=== PATIENT | female | born 1945 | race Two or more races ===

== ENCOUNTER 2022-12-18 18:26 | Inpatient (IN) | payer OTHER, MEDICAID ==
[~2022-12-18] VITALS: Ht 142.2 cm; Wt 81.4 kg
[2022-12-18] MEDS ORDERED: INSU100I27 SC (21:54)
[2022-12-18] MEDS ORDERED: INSU50IN6 (21:54)
[2022-12-18] MEDS ORDERED: INSUINJ37 SC (21:54)
[2022-12-18] MEDS ORDERED: LEVO150T10 PO (21:54)
[2022-12-18] MEDS ORDERED: POTA-180 PO (21:54)
[2022-12-18] MEDS ORDERED: LISI-716 PO (21:54)
[2022-12-18] MEDS ORDERED: FENO67CA6 PO (21:54)
[2022-12-18] MEDS ORDERED: AMLO-496 PO (21:54)
[2022-12-18] MEDS ORDERED: ALPR0.5T8 PO (21:54)
[2022-12-18] MEDS ORDERED: GABA300C10 PO (21:54)
[2022-12-18] MEDS ORDERED: HYDR-3682 PO (21:54)
[2022-12-18 22:00] VITALS: BP 134/48
[2022-12-18] MEDS ORDERED: ONDANSETRON HCL 4 MG/2 ML VIAL IV PRN (22:15)
[2022-12-18] MEDS ORDERED: DEXTROSE (50%) 50ML SYRG IV PRN (22:15)
[2022-12-18] MEDS: MORPHINE SULFATE INJ 2 MG/ml SYRG IV PRN (23:54)
[2022-12-19] MEDS: CLINDAMYCIN 600MG IV 50 ML IV SCH ×2 (00:48→07:00)
[2022-12-19 05:00] VITALS: BP 127/57
[2022-12-19] MEDS: MORPHINE SULFATE INJ 2 MG/ml SYRG IV PRN ×3 (05:30→23:37)
[2022-12-19] MEDS ORDERED: ACCU-CHEK COMFORT CURVE STRIP VI SCH ×2 (07:00→12:00)
[2022-12-19] MEDS ORDERED: InsuLIN REG 1unit/0.01ml Soln (100units/ml) SC SCH ×3 (07:00→22:00)
[2022-12-19 09:00] VITALS: BP 104/35
[2022-12-19] MEDS: levoFLOXacin 500MG 100 ML IV SCH (10:23)
[2022-12-19] MEDS ORDERED: DEXTROSE (50%) 50ML SYRG IV PRN (11:45)
[2022-12-19] MEDS ORDERED: ALPRAZolam 0.5 MG TAB PO PRN ×2 (11:45)
[2022-12-19] MEDS: InsuLIN REG 1unit/0.01ml Soln (100units/ml) SC SCH ×3 (11:58→23:49)
[2022-12-19] MEDS: ACCU-CHEK COMFORT CURVE STRIP VI SCH ×3 (11:58→23:38)
[2022-12-19 12:46] VITALS: BP 146/54
[2022-12-19] MEDS ORDERED: GABAPENTIN 300 MG CAP PO SCH (14:00)
[2022-12-19] MEDS: GABAPENTIN 300 MG CAP PO SCH ×2 (14:12→22:47)
[2022-12-19] MEDS ORDERED: VANCOMYCIN PER PHARMACY 0 MG IV SCH (14:30)
[2022-12-19] MEDS ORDERED: VANCOMYCIN 1GM/250ML 250 ML IV ONE (14:45)
[2022-12-19 15:22] LABS: Calcium 8.6 mg/dL (8.5-10.1); Potassium 4.7 mmol/L (3.5-5.1)
[2022-12-19 15:25] LABS: BUN/Creatinine Ratio 19.6 (10.0-20.0)
[2022-12-19 16:54] LABS: Basophils # (auto) 0 10 ^3/uL (0-0.2); Basophils % (auto) 0.7 % (0.0-2.0); Eosinophils # (auto) 0 10 ^3/uL (0-0.8); Hemoglobin 10.3 g/dL (12.2-16.2); Lymphocytes # (auto) 1.4 10 ^3/uL (0.4-5.4); Lymphocytes % (auto) 26.2 % (10.0-50.0); Mean Corpuscular Hemoglobin 29.1 pg (28.0-32.0); Mean Corpuscular Hgb Conc. 32.2 g/dL (32.0-36.0); Mean Corpuscular Volume 90.4 fL (80.0-100.0); Monocytes # (auto) 0.6 10 ^3/uL (0-1.3); Monocytes % (auto) 10.3 % (0.0-12.0); Neutrophils # (auto) 3.5 10 ^3/uL (1.6-8.6); Neutrophils % (auto) 62.8 % (37.0-80.0); Nucleated Red Blood Cells % 0.1 %; Red Blood Cells 3.54 10^6/uL (4.0-5.20); Red Cell Distribution Width 14.9 % (11.8-14.3); White Blood Cell 5.5 10^3/uL (4.4-10.8)
[2022-12-19 17:00] VITALS: BP 125/47
[2022-12-19 17:09] LABS: INR 1.03 (0.9-1.15); Partial Thromboplastin Time 27.7 sec (24.6-33.4)
[2022-12-19 22:00] VITALS: BP 119/46
[2022-12-20 05:00] VITALS: BP 127/53
[2022-12-20] MEDS: GABAPENTIN 300 MG CAP PO SCH ×3 (06:00→23:44)
[2022-12-20] MEDS: InsuLIN REG 1unit/0.01ml Soln (100units/ml) SC SCH ×3 (06:00→18:37)
[2022-12-20 06:01] LABS: Basophils # (auto) 0 10 ^3/uL (0-0.2); Basophils % (auto) 0.6 % (0.0-2.0); Eosinophils # (auto) 0 10 ^3/uL (0-0.8); Eosinophils % (auto) 0.1 % (0.0-7.0); Hematocrit 29.8 % (36.0-46.0); Hemoglobin 10.1 g/dL (12.2-16.2); Lymphocytes # (auto) 2.7 10 ^3/uL (0.4-5.4); Lymphocytes % (auto) 41.2 % (10.0-50.0); Mean Corpuscular Hemoglobin 30.1 pg (28.0-32.0); Mean Corpuscular Hgb Conc. 33.9 g/dL (32.0-36.0); Mean Corpuscular Volume 88.9 fL (80.0-100.0); Monocytes # (auto) 0.9 10 ^3/uL (0-1.3); Monocytes % (auto) 13.6 % (0.0-12.0); Neutrophils # (auto) 2.9 10 ^3/uL (1.6-8.6); Neutrophils % (auto) 44.5 % (37.0-80.0); Nucleated Red Blood Cells % 0.1 %; Red Blood Cells 3.35 10^6/uL (4.0-5.20); Red Cell Distribution Width 15.3 % (11.8-14.3); White Blood Cell 6.5 10^3/uL (4.4-10.8)
[2022-12-20 06:13] LABS: Albumin 2.2 g/dL (3.4-5.0); Calcium 8.3 mg/dL (8.5-10.1); Potassium 3.6 mmol/L (3.5-5.1)
[2022-12-20 06:18] LABS: BUN/Creatinine Ratio 20.6 (10.0-20.0); Bilirubin, Total 0.3 mg/dL (0.2-1.0); Total Protein 5.9 g/dL (6.4-8.2)
[2022-12-20] MEDS: ACCU-CHEK COMFORT CURVE STRIP VI SCH ×3 (06:18→18:00)
[2022-12-20 06:37] LABS: INR 1.03 (0.9-1.15); Partial Thromboplastin Time 28.4 sec (24.6-33.4)
[2022-12-20] MEDS ORDERED: cefTRIAXone 1GM/50ML D5W 50 ML IV SCH (09:00)
[2022-12-20 09:17] VITALS: BP 133/66
[2022-12-20] MEDS ORDERED: PATIENTS OWN MEDICATION (Levothyroxine Sodium 1 TAB) PO SCH (10:00)
[2022-12-20] MEDS: FENOFIBRATE 67 MG PO SCH (10:00)
[2022-12-20] MEDS ORDERED: LISINOPRIL 10 MG TAB PO SCH (10:00)
[2022-12-20] MEDS ORDERED: PATIENTS OWN MEDICATION (Amlodipine Besylate 1 TAB) PO SCH (10:00)
[2022-12-20] MEDS: levoFLOXacin 500MG 100 ML IV SCH (10:50)
[2022-12-20] MEDS: LISINOPRIL 10 MG TAB PO SCH (10:50)
[2022-12-20] MEDS: LEVOTHYROXINE SODIUM 50 MCG TAB PO SCH (10:51)
[2022-12-20] MEDS: amLODIPine BESYLATE 5 MG TAB PO SCH (10:52)
[2022-12-20 13:00] VITALS: BP 150/76
[2022-12-20] MEDS: VANCOMYCIN 1GM/250ML 250 ML IV SCH (15:08)
[2022-12-20] MEDS ORDERED: MIDAZOLAM HCL 2MG/2ML 2ml VIAL (1mg/ml) ONE (16:17)
[2022-12-20] MEDS ORDERED: KETAMINE HCL 10 ML ONE (16:17)
[2022-12-20] MEDS ORDERED: GLYCOPYRROLATE 0.2 MG/ML 1ML VIAL ONE (16:17)
[2022-12-20] MEDS ORDERED: ONDANSETRON HCL 4 MG/2 ML VIAL ONE (16:17)
[2022-12-20] MEDS ORDERED: PROPOFOL 10 MG/ML 20 ML IV ONE (16:18)
[2022-12-20] MEDS ORDERED: ACCU-CHEK COMFORT CURVE STRIP VI ONE (17:15)
[2022-12-20] MEDS ORDERED: HYDROcodone-ACET 5/325MG TAB PO ONE (17:15)
[2022-12-20] MEDS ORDERED: HYDROmorphone HCL 2 MG/ML VL/or syr IV PRN (17:15)
[2022-12-20] MEDS ORDERED: HYDROmorphone HCL 2 MG/ML VL/or syr IV ONE (17:24)
[2022-12-20 22:00] VITALS: BP 132/38
[2022-12-21] MEDS: HYDROcodone-ACET 5/325MG TAB PO PRN ×3 (00:01→21:19)
[2022-12-21] MEDS: InsuLIN REG 1unit/0.01ml Soln (100units/ml) SC SCH ×5 (01:09→23:57)
[2022-12-21] MEDS: ACCU-CHEK COMFORT CURVE STRIP VI SCH ×5 (01:09→23:56)
[2022-12-21 05:00] VITALS: BP 106/38
[2022-12-21] MEDS: GABAPENTIN 300 MG CAP PO SCH ×3 (05:37→21:18)
[2022-12-21 08:47] VITALS: BP 104/62
[2022-12-21] MEDS: levoFLOXacin 500MG 100 ML IV SCH (09:38)
[2022-12-21] MEDS: amLODIPine BESYLATE 5 MG TAB PO SCH (09:39)
[2022-12-21] MEDS: LISINOPRIL 10 MG TAB PO SCH (09:39)
[2022-12-21] MEDS: LEVOTHYROXINE SODIUM 50 MCG TAB PO SCH (09:39)
[2022-12-21] MEDS: FENOFIBRATE 67 MG PO SCH (09:40)
[2022-12-21 12:46] VITALS: BP 121/54
[2022-12-21] MEDS: VANCOMYCIN 1GM/250ML 250 ML IV SCH (14:50)
[2022-12-21] MEDS ORDERED: CIPR500T4 PO (15:34)
[2022-12-21 17:18] VITALS: BP 109/42
[2022-12-21 22:00] VITALS: BP 117/59
[2022-12-22 04:56] VITALS: BP 123/49
[2022-12-22] MEDS: ACCU-CHEK COMFORT CURVE STRIP VI SCH ×4 (05:57→23:30)
[2022-12-22] MEDS: InsuLIN REG 1unit/0.01ml Soln (100units/ml) SC SCH ×4 (06:02→23:36)
[2022-12-22] MEDS: GABAPENTIN 300 MG CAP PO SCH ×3 (06:02→23:15)
[2022-12-22] MEDS: HYDROcodone-ACET 5/325MG TAB PO PRN ×3 (06:02→23:30)
[2022-12-22 09:00] VITALS: BP 113/52
[2022-12-22] MEDS: LEVOTHYROXINE SODIUM 50 MCG TAB PO SCH (09:45)
[2022-12-22] MEDS: LISINOPRIL 10 MG TAB PO SCH (09:46)
[2022-12-22] MEDS: amLODIPine BESYLATE 5 MG TAB PO SCH (09:48)
[2022-12-22] MEDS: levoFLOXacin 500MG 100 ML IV SCH (09:49)
[2022-12-22] MEDS: FENOFIBRATE 67 MG PO SCH (10:00)
[2022-12-22 13:00] VITALS: BP 136/66
[2022-12-22 15:16] VITALS: BP 113/52
[2022-12-22 17:00] VITALS: BP 121/49
[2022-12-22 22:00] VITALS: BP 107/41
[2022-12-23 05:00] VITALS: BP 126/60
[2022-12-23] MEDS: GABAPENTIN 300 MG CAP PO SCH (05:31)
[2022-12-23] MEDS: ACCU-CHEK COMFORT CURVE STRIP VI SCH (05:36)
[2022-12-23] MEDS: InsuLIN REG 1unit/0.01ml Soln (100units/ml) SC SCH (05:37)
== END 2022-12-23 08:30 | disposition home health service (06) | DRG 465 ==
LOC: WEST WING 19:19
PROVIDERS: ADMIT Internal Medicine; ATTEND Internal Medicine
PROC: 0JBP0ZZ Excision of Left Lower Leg Subcutaneous Tissue and Fascia, Open Approach (ICD-10-PCS; principal; 2022-12-20 16:22)
DX: T87.81 Dehiscence of amputation stump (principal); T87.44 Infection of amputation stump, left lower extremity; E11.22 Type 2 diabetes mellitus with diabetic chronic kidney disease; E11.59 Type 2 diabetes mellitus with other circulatory complications; E11.65 Type 2 diabetes mellitus with hyperglycemia; E78.5 Hyperlipidemia, unspecified; I12.9 Hypertensive chronic kidney disease with stage 1 through stage 4 chronic kidney disease, or unspecified chronic kidney disease; I25.10 Atherosclerotic heart disease of native coronary artery without angina pectoris; N18.9 Chronic kidney disease, unspecified; Y83.5 Amputation of limb(s) as the cause of abnormal reaction of the patient, or of later complication, without mention of misadventure at the time of the procedure; Z20.822 Contact with and (suspected) exposure to COVID-19; F41.9 Anxiety disorder, unspecified; Z79.4 Long term (current) use of insulin; Z79.899 Other long term (current) drug therapy; Z80.41 Family history of malignant neoplasm of ovary; Z88.0 Allergy status to penicillin; Z89.511 Acquired absence of right leg below knee; Z89.512 Acquired absence of left leg below knee; Y92.89 Other specified places as the place of occurrence of the external cause
CPT/HCPCS: 36415; 80048; 80053; 80061; 82565; 82962; 85025; 85610; 85730; 86850; 86900; 86901; 87077; 87081; 87186; 87205; 87426; 93005; 93306; G0378; J1815; J1956; J2250; J2405; J2704; J3490

== ENCOUNTER 2023-05-13 00:18 | Inpatient (IN) | payer OTHER, MEDICAID ==
[~2023-05-13] VITALS: Ht 160 cm; Wt 68.0 kg
[~2023-05-13 00:18] MED LIST: ALPR0.5T8 PO; AMLO1TAB23 PO; CIPR500T4 PO; FENO67CA16 PO; GABA-1250 PO; HYDR-3682 PO; INSU100I27 SC; INSU50IN6; INSUINJ37 SC; LEVO150T10 PO; LISI10TA34 PO; POTA-180 PO
[2023-05-13 01:34] LABS: Basophils # (auto) 0.1 10 ^3/uL (0-0.2); Basophils % (auto) 0.5 % (0.0-2.0); Eosinophils # (auto) 0.1 10 ^3/uL (0-0.8); Eosinophils % (auto) 0.8 % (0.0-7.0); Hematocrit 35.8 % (36.0-46.0); Hemoglobin 11.7 g/dL (12.2-16.2); Lymphocytes # (auto) 3.3 10 ^3/uL (0.4-5.4); Lymphocytes % (auto) 25.4 % (10.0-50.0); Mean Corpuscular Hemoglobin 30.7 pg (28.0-32.0); Mean Corpuscular Hgb Conc. 32.7 g/dL (32.0-36.0); Mean Corpuscular Volume 93.9 fL (80.0-100.0); Monocytes # (auto) 1.2 10 ^3/uL (0-1.3); Monocytes % (auto) 9.4 % (0.0-12.0); Neutrophils # (auto) 8.2 10 ^3/uL (1.6-8.6); Neutrophils % (auto) 63.9 % (37.0-80.0); Red Blood Cells 3.81 10^6/uL (4.0-5.20); Red Cell Distribution Width 14.5 % (11.8-14.3); White Blood Cell 12.9 10^3/uL (4.4-10.8)
[2023-05-13 01:54] LABS: Albumin 3.4 g/dL (3.4-5.0); BUN/Creatinine Ratio 30.7 (10.0-20.0); Potassium 5.5 mmol/L (3.5-5.1)
[2023-05-13 01:56] LABS: Bilirubin, Total 0.2 mg/dL (0.2-1.0); Total Protein 7.1 g/dL (6.4-8.2)
[2023-05-13 05:52] LABS: Potassium 5.5 mmol/L (3.5-5.1)
[2023-05-13 05:57] LABS: BUN/Creatinine Ratio 32.8 (10.0-20.0); Calcium 8.9 mg/dL (8.5-10.1)
[2023-05-13 08:28] VITALS: PULSE 70; RESP 18; O2SAT 96
[2023-05-13] MEDS ORDERED: SODIUM BICARBONATE 8.4 % INJ 50ML VIAL IV ONE (11:15)
[2023-05-13] MEDS ORDERED: CALCIUM GLUC 1,000mg/50ml-NS 50 ML IV ONE (11:15)
[2023-05-13] MEDS ORDERED: FUROSEMIDE 20 MG/2 ML VIAL IV ONE (11:15)
[2023-05-13 11:36] LABS: Urine Bacteria NONE SEEN /hpf (None Seen); Urine Blood Negative /uL (Negative); Urine Clarity Clear (Clear); Urine Protein, UAD Negative (Negative); Urine Urobilinogen Normal (Negative); Urine WBC 1 /hpf (0 - 5); Urine pH 6.5 (5.0-8.0)
[2023-05-13 11:37] LABS: Urine Color STRAW (Yellow)
[2023-05-13 12:23] VITALS: PULSE 61; RESP 12; O2SAT 98
[2023-05-13] MEDS ORDERED: HYDROcodone-ACET 5/325MG TAB PO PRN (17:30)
[2023-05-13] MEDS ORDERED: MORPHINE SULFATE INJ 2 MG/ml SYRG IV PRN (17:30)
[2023-05-13] MEDS ORDERED: NITROGLYCERIN 0.4 MG SL TAB SL PRN (17:30)
[2023-05-13] MEDS ORDERED: DEXTROSE (50%) 50ML SYRG IV PRN (17:30)
[2023-05-13] MEDS ORDERED: ONDANSETRON HCL 4 MG/2 ML VIAL IV PRN (17:30)
[2023-05-13] MEDS: SODIUM CHLORIDE 0.9% 1,000 ML IV SCH (18:26)
[2023-05-13 19:28] VITALS: PULSE 71; RESP 14; O2SAT 98
[2023-05-13] MEDS: ACCU-CHEK COMFORT CURVE STRIP VI SCH (22:16)
[2023-05-13] MEDS: GABAPENTIN 100 MG CAP PO SCH (22:24)
[2023-05-13] MEDS: SODIUM ZIRCONIUM CYCL 10 GM PAK PO SCH (22:24)
[2023-05-13] MEDS: InsuLIN REG 1unit/0.01ml Soln (100units/ml) SC SCH (22:31)
[2023-05-14] MEDS: GABAPENTIN 100 MG CAP PO SCH ×3 (05:31→22:09)
[2023-05-14 05:37] LABS: Potassium 4.9 mmol/L (3.5-5.1)
[2023-05-14 05:46] LABS: BUN/Creatinine Ratio 28.9 (10.0-20.0); Calcium 9.3 mg/dL (8.5-10.1)
[2023-05-14] MEDS: SODIUM CHLORIDE 0.9% 1,000 ML IV SCH (06:25)
[2023-05-14] MEDS: ACCU-CHEK COMFORT CURVE STRIP VI SCH ×4 (06:45→22:14)
[2023-05-14] MEDS: InsuLIN REG 1unit/0.01ml Soln (100units/ml) SC SCH ×4 (06:49→22:14)
[2023-05-14] MEDS ORDERED: LEVOTHYROXINE SODIUM 50 MCG TAB PO SCH (07:00)
[2023-05-14 07:43] LABS: Basophils # (auto) 0.1 10 ^3/uL (0-0.2); Basophils % (auto) 0.7 % (0.0-2.0); Eosinophils # (auto) 0.2 10 ^3/uL (0-0.8); Eosinophils % (auto) 1.5 % (0.0-7.0); Hematocrit 36.3 % (36.0-46.0); Hemoglobin 11.9 g/dL (12.2-16.2); Lymphocytes # (auto) 4.2 10 ^3/uL (0.4-5.4); Lymphocytes % (auto) 35.6 % (10.0-50.0); Mean Corpuscular Hemoglobin 30.9 pg (28.0-32.0); Mean Corpuscular Hgb Conc. 32.7 g/dL (32.0-36.0); Mean Corpuscular Volume 94.4 fL (80.0-100.0); Monocytes # (auto) 1.2 10 ^3/uL (0-1.3); Monocytes % (auto) 10.1 % (0.0-12.0); Neutrophils # (auto) 6.2 10 ^3/uL (1.6-8.6); Neutrophils % (auto) 52.1 % (37.0-80.0); Nucleated Red Blood Cells % 0.1 %; Red Blood Cells 3.85 10^6/uL (4.0-5.20); Red Cell Distribution Width 14.2 % (11.8-14.3); White Blood Cell 11.8 10^3/uL (4.4-10.8)
[2023-05-14 09:38] VITALS: PULSE 72; RESP 20; O2SAT 97
[2023-05-14] MEDS: SODIUM ZIRCONIUM CYCL 10 GM PAK PO SCH (09:44)
[2023-05-14 15:08] VITALS: TEMP 98.2
[2023-05-14 21:55] VITALS: BP 112/68; PULSE 68; RESP 17; O2SAT 98
== END 2023-05-14 22:17 | disposition home or self-care (01) | DRG 639 ==
LOC: EDBD 00:18 → ER 00:18 → TELE 17:23
PROVIDERS: ADMIT Hospitalist; ATTEND Hospitalist
DX: E11.649 Type 2 diabetes mellitus with hypoglycemia without coma (principal); E87.5 Hyperkalemia; E03.9 Hypothyroidism, unspecified; E78.5 Hyperlipidemia, unspecified; I25.10 Atherosclerotic heart disease of native coronary artery without angina pectoris; I12.9 Hypertensive chronic kidney disease with stage 1 through stage 4 chronic kidney disease, or unspecified chronic kidney disease; E11.22 Type 2 diabetes mellitus with diabetic chronic kidney disease; N18.32 Chronic kidney disease, stage 3b; N17.9 Acute kidney failure, unspecified; Z88.0 Allergy status to penicillin; Z89.512 Acquired absence of left leg below knee; Z80.41 Family history of malignant neoplasm of ovary; Z83.3 Family history of diabetes mellitus; Z89.511 Acquired absence of right leg below knee; Z79.4 Long term (current) use of insulin
CPT/HCPCS: 36415; 70450; 71045; 80048; 80053; 81001; 82962; 84132; 84439; 84443; 84484; 85025; 93005; G0378; J1815

== ENCOUNTER 2023-06-29 12:30 | Inpatient (IN) | payer OTHER, MEDICAID ==
[~2023-06-29] VITALS: Ht 157.5 cm; Wt 79.0 kg
[2023-06-29 13:50] VITALS: PULSE 79; RESP 18; O2SAT 97
[2023-06-29] MEDS ORDERED: MORPHINE SULFATE 4 MG/ML SYR/VIAL IV ONE (14:00)
[2023-06-29] MEDS ORDERED: ONDANSETRON HCL 4 MG/2 ML VIAL IV ONE (14:00)
[2023-06-29 14:22] LABS: Basophils # (auto) 0.1 10 ^3/uL (0-0.2); Basophils % (auto) 0.5 % (0.0-2.0); Eosinophils # (auto) 0.1 10 ^3/uL (0-0.8); Eosinophils % (auto) 0.6 % (0.0-7.0); Hematocrit 35.8 % (36.0-46.0); Hemoglobin 11.9 g/dL (12.2-16.2); Lymphocytes % (auto) 15.3 % (10.0-50.0); Mean Corpuscular Hemoglobin 31.5 pg (28.0-32.0); Mean Corpuscular Hgb Conc. 33.2 g/dL (32.0-36.0); Mean Corpuscular Volume 94.9 fL (80.0-100.0); Monocytes # (auto) 1.2 10 ^3/uL (0-1.3); Monocytes % (auto) 6.3 % (0.0-12.0); Neutrophils # (auto) 15.1 10 ^3/uL (1.6-8.6); Neutrophils % (auto) 77.3 % (37.0-80.0); Red Blood Cells 3.77 10^6/uL (4.0-5.20); Red Cell Distribution Width 12.8 % (11.8-14.3); White Blood Cell 19.5 10^3/uL (4.4-10.8)
[2023-06-29] MEDS ORDERED: MORPHINE SULFATE INJ 2 MG/ml SYRG IV PRN (14:30)
[2023-06-29] MEDS ORDERED: hydrALAZINE HCL 20 MG/ML VL IV PRN (14:30)
[2023-06-29] MEDS ORDERED: ONDANSETRON HCL 4 MG/2 ML VIAL IV PRN (14:30)
[2023-06-29] MEDS ORDERED: DEXTROSE (50%) 50ML SYRG IV PRN (14:30)
[2023-06-29] MEDS ORDERED: NITROGLYCERIN 0.4 MG SL TAB SL PRN (14:30)
[2023-06-29 14:41] LABS: Alanine Aminotransferase 15 U/L (7-40); Albumin 4.1 g/dL (3.2-4.8); Alkaline Phosphatase 66 U/L (46-116); Anion Gap 12 (5-15); Aspartate Aminotransferase 17 U/L (13-40); Bilirubin, Total 0.3 mg/dL (0.2-1.0); Blood Urea Nitrogen 28 mg/dL (9-23); Calcium 8.8 mg/dL (8.5-10.1); Carbon Dioxide 24 mmol/L (20-30); Chloride 106 mmol/L (98-107); Glucose 159 mg/dL (74-106); Potassium 3.5 mmol/L (3.5-5.1); Sodium 142 mmol/L (136-145)
[2023-06-29 14:42] LABS: INR 1.09 (0.9-1.15); Partial Thromboplastin Time 24.8 SEC (24.5-34.5); Prothrombin Time 11.4 sec (9.3-11.8)
[2023-06-29] MEDS: SODIUM CHLORIDE 0.9% 1,000 ML IV SCH (16:16)
[2023-06-29 17:16] LABS: Urine Bacteria NONE SEEN /hpf (None Seen); Urine Blood Negative /uL (Negative); Urine Clarity Clear (Clear); Urine Color Colorless (Yellow); Urine Protein, UAD Negative (Negative); Urine Specific Gravity 1.013 (1.001-1.035); Urine Urobilinogen Normal (Negative); Urine WBC 5 /hpf (0 - 5)
[2023-06-29] MEDS: InsuLIN REG 1unit/0.01ml Soln (100units/ml) SC SCH (18:00)
[2023-06-29] MEDS: ACCU-CHEK COMFORT CURVE STRIP VI SCH (18:00)
[2023-06-29 18:15] VITALS: RESP 18
[2023-06-29 20:00] VITALS: PULSE 87; PULSE 90; RESP 17; O2SAT 99
[2023-06-29] MEDS: MORPHINE SULFATE INJ 2 MG/ml SYRG IV PRN (20:57)
[2023-06-29] MEDS: GABAPENTIN 300 MG CAP PO SCH (21:57)
[2023-06-29 22:00] VITALS: BP 127/57; PULSE 84; RESP 18; TEMP 99; O2SAT 97
[2023-06-30] VITALS (7 sets, daily range): BP systolic 105–148; BP diastolic 35–56; PULSE 65–83; RESP 14–18; TEMP 97.9–99.2; O2SAT 90–98
[2023-06-30] MEDS: ACCU-CHEK COMFORT CURVE STRIP VI SCH ×4 (00:04→17:36)
[2023-06-30] MEDS: InsuLIN REG 1unit/0.01ml Soln (100units/ml) SC SCH ×4 (00:04→17:33)
[2023-06-30] MEDS: MORPHINE SULFATE INJ 2 MG/ml SYRG IV PRN ×3 (00:16→14:02)
[2023-06-30] MEDS: SODIUM CHLORIDE 0.9% 1,000 ML IV SCH ×2 (05:05→21:10)
[2023-06-30] MEDS: GABAPENTIN 300 MG CAP PO SCH ×3 (06:00→21:11)
[2023-06-30] MEDS: LEVOTHYROXINE SODIUM 50 MCG TAB PO SCH (06:07)
[2023-06-30 07:03] LABS: Chloride 101 mmol/L (98-107); Potassium 3.2 mmol/L (3.5-5.1); Sodium 137 mmol/L (136-145)
[2023-06-30 07:04] LABS: Anion Gap 10 (5-15); Carbon Dioxide 26 mmol/L (20-30)
[2023-06-30 07:05] LABS: Calcium 8.7 mg/dL (8.5-10.1)
[2023-06-30 07:10] LABS: BUN/Creatinine Ratio 15.9 (10.0-20.0); Blood Urea Nitrogen 21 mg/dL (9-23); Glucose 151 mg/dL (74-106)
[2023-06-30] MEDS ORDERED: ceFAZolin 1GM/50ML 100 ML IV ONE (07:12)
[2023-06-30] MEDS ORDERED: DexAMETHasone SOD PHOS 10MG/1ML VIAL INJ ONE ×2 (07:14→07:15)
[2023-06-30] MEDS ORDERED: KETOROLAC TROMETH 30 MG/ML 1ML VIAL ONE (07:14)
[2023-06-30] MEDS ORDERED: GLYCOPYRROLATE 0.2 MG/ML 1ML VIAL ONE (07:14)
[2023-06-30] MEDS ORDERED: ONDANSETRON HCL 4 MG/2 ML VIAL ONE (07:14)
[2023-06-30] MEDS ORDERED: PROPOFOL 10 MG/ML 20 ML IV ONE (07:14)
[2023-06-30] MEDS ORDERED: LIDOCAINE 2% (LOCAL ANESTH.) PF 5ml SDV ONE (07:14)
[2023-06-30] MEDS ORDERED: fentaNYL CITRATE 100 MCG/2 ML VL ONE (07:16)
[2023-06-30] MEDS ORDERED: ONDANSETRON HCL 4 MG/2 ML VIAL IV PRN (09:00)
[2023-06-30] MEDS ORDERED: FLUMAZENIL 0.1 MG/ML INJ 10ML MDV IV PRN (09:00)
[2023-06-30] MEDS ORDERED: LABETALOL HCL 5 MG/ML 4ML SYRINGE IV PRN (09:00)
[2023-06-30] MEDS ORDERED: NALOXONE HCL 0.4 MG/ML VIAL IV PRN (09:00)
[2023-06-30] MEDS ORDERED: HYDROmorphone HCL 2 MG/ML VL/or syr IV PRN (09:00)
[2023-06-30] MEDS ORDERED: ePHEDrine SULFATE 50 MG/ML AMP IV PRN (09:00)
[2023-06-30] MEDS ORDERED: hydrALAZINE HCL 20 MG/ML VL IV PRN (09:00)
[2023-06-30] MEDS ORDERED: fentaNYL CITRATE 100 MCG/2 ML VL IV PRN (09:00)
[2023-06-30] MEDS ORDERED: FAMOTIDINE 20 MG TAB PO SCH (10:00)
[2023-06-30] MEDS: LISINOPRIL 10 MG TAB PO SCH (10:08)
[2023-06-30] MEDS: FAMOTIDINE 20 MG TAB PO SCH (10:08)
[2023-06-30] MEDS: ceFAZolin 1GM/50ML 50 ML IV SCH ×2 (14:00→21:11)
[2023-06-30] MEDS: HYDROcodone-ACET 5/325MG TAB PO PRN ×2 (14:40→21:32)
[2023-06-30] MEDS: HEPARIN SODIUM (PORCINE) 5000 UNITS/ML 1ML VIAL SC SCH ×2 (16:10→21:15)
[2023-06-30] MEDS ORDERED: HEPARIN SODIUM (PORCINE) 5000 UNITS/ML 1ML VIAL ONE ×2 (21:01)
[2023-07-01] MEDS: ACCU-CHEK COMFORT CURVE STRIP VI SCH ×4 (00:18→17:54)
[2023-07-01] MEDS: InsuLIN REG 1unit/0.01ml Soln (100units/ml) SC SCH ×5 (00:18→21:48)
[2023-07-01] MEDS ORDERED: DEXTROSE (50%) 50ML SYRG IV PRN ×2 (01:30→06:00)
[2023-07-01] MEDS: MORPHINE SULFATE INJ 2 MG/ml SYRG IV PRN ×6 (01:53→22:15)
[2023-07-01] MEDS: HYDROcodone-ACET 5/325MG TAB PO PRN ×4 (03:20→20:30)
[2023-07-01 05:00] VITALS: BP 105/49; PULSE 65; RESP 18; TEMP 98; O2SAT 97
[2023-07-01] MEDS ORDERED: ACCU-CHEK COMFORT CURVE STRIP VI SCH (06:00)
[2023-07-01] MEDS: GABAPENTIN 300 MG CAP PO SCH ×3 (06:23→21:53)
[2023-07-01] MEDS: ceFAZolin 1GM/50ML 50 ML IV SCH ×3 (06:24→21:53)
[2023-07-01 06:42] LABS: Basophils # (auto) 0 10 ^3/uL (0-0.2); Basophils % (auto) 0.2 % (0.0-2.0); Eosinophils # (auto) 0 10 ^3/uL (0-0.8); Eosinophils % (auto) 0.2 % (0.0-7.0); Hemoglobin 9.3 g/dL (12.2-16.2); Lymphocytes # (auto) 2.3 10 ^3/uL (0.4-5.4); Mean Corpuscular Hemoglobin 30.9 pg (28.0-32.0); Mean Corpuscular Hgb Conc. 32.2 g/dL (32.0-36.0); Mean Corpuscular Volume 95.9 fL (80.0-100.0); Monocytes # (auto) 1.9 10 ^3/uL (0-1.3); Neutrophils # (auto) 16.5 10 ^3/uL (1.6-8.6); Neutrophils % (auto) 79.6 % (37.0-80.0); Nucleated Red Blood Cells % 0.1 %; Red Blood Cells 3.02 10^6/uL (4.0-5.20); Red Cell Distribution Width 12.7 % (11.8-14.3); White Blood Cell 20.8 10^3/uL (4.4-10.8)
[2023-07-01 06:58] LABS: Chloride 101 mmol/L (98-107); Potassium 4.3 mmol/L (3.5-5.1)
[2023-07-01 06:59] LABS: Anion Gap 8 (5-15); Carbon Dioxide 22 mmol/L (20-30)
[2023-07-01 07:00] LABS: Calcium 8.2 mg/dL (8.7-10.4)
[2023-07-01 07:03] LABS: Sodium 131 mmol/L (136-145)
[2023-07-01 07:04] LABS: Glucose 208 mg/dL (74-106)
[2023-07-01 07:05] LABS: BUN/Creatinine Ratio 18.1 (10.0-20.0); Blood Urea Nitrogen 31 mg/dL (9-23)
[2023-07-01 08:00] VITALS: PULSE 65; PULSE 67; RESP 18; O2SAT 90
[2023-07-01] MEDS: ALPRAZolam 0.25 MG TAB PO PRN ×2 (08:57→22:07)
[2023-07-01] MEDS: FAMOTIDINE 20 MG TAB PO SCH (08:59)
[2023-07-01 09:00] VITALS: BP 104/47; PULSE 67; RESP 18; TEMP 98; O2SAT 90
[2023-07-01] MEDS: SODIUM CHLORIDE 0.9% 1,000 ML IV SCH ×2 (09:04→21:05)
[2023-07-01] MEDS: LISINOPRIL 10 MG TAB PO SCH (09:06)
[2023-07-01] MEDS: LEVOTHYROXINE SODIUM 50 MCG TAB PO SCH (09:12)
[2023-07-01] MEDS: HEPARIN SODIUM (PORCINE) 5000 UNITS/ML 1ML VIAL SC SCH ×2 (09:21→21:52)
[2023-07-01 13:00] VITALS: BP 106/41; PULSE 63; RESP 19; TEMP 98.4; O2SAT 90
[2023-07-01 17:00] VITALS: BP 105/42; PULSE 64; RESP 19; TEMP 98.4; O2SAT 90
[2023-07-01 20:00] VITALS: PULSE 70; PULSE 78; RESP 18
[2023-07-02] VITALS (8 sets, daily range): BP systolic 119–150; BP diastolic 41–75; PULSE 67–96; RESP 15–20; TEMP 97.8–98.5; O2SAT 90–100
[2023-07-02 05:34] LABS: Basophils # (auto) 0 10 ^3/uL (0-0.2); Basophils % (auto) 0.3 % (0.0-2.0); Eosinophils # (auto) 0.2 10 ^3/uL (0-0.8); Eosinophils % (auto) 1.2 % (0.0-7.0); Hemoglobin 10.3 g/dL (12.2-16.2); Lymphocytes # (auto) 2.3 10 ^3/uL (0.4-5.4); Mean Corpuscular Hemoglobin 31.6 pg (28.0-32.0); Mean Corpuscular Hgb Conc. 33.1 g/dL (32.0-36.0); Mean Corpuscular Volume 95.4 fL (80.0-100.0); Monocytes # (auto) 0.8 10 ^3/uL (0-1.3); Monocytes % (auto) 5.8 % (0.0-12.0); Neutrophils # (auto) 10.4 10 ^3/uL (1.6-8.6); Neutrophils % (auto) 75.7 % (37.0-80.0); Red Blood Cells 3.25 10^6/uL (4.0-5.20); Red Cell Distribution Width 12.9 % (11.8-14.3); White Blood Cell 13.8 10^3/uL (4.4-10.8)
[2023-07-02 05:35] LABS: Anion Gap 8 (5-15); Carbon Dioxide 23 mmol/L (20-30); Chloride 103 mmol/L (98-107); Potassium 4.6 mmol/L (3.5-5.1); Sodium 134 mmol/L (136-145)
[2023-07-02 05:36] LABS: Calcium 8.1 mg/dL (8.5-10.1)
[2023-07-02 05:41] LABS: BUN/Creatinine Ratio 26.3 (10.0-20.0); Blood Urea Nitrogen 40 mg/dL (9-23); Glucose 224 mg/dL (74-106)
[2023-07-02] MEDS: ceFAZolin 1GM/50ML 50 ML IV SCH ×3 (06:00→21:36)
[2023-07-02] MEDS: ACCU-CHEK COMFORT CURVE STRIP VI SCH ×4 (06:00→18:35)
[2023-07-02] MEDS: InsuLIN REG 1unit/0.01ml Soln (100units/ml) SC SCH ×3 (06:08→18:37)
[2023-07-02] MEDS: GABAPENTIN 300 MG CAP PO SCH ×3 (06:11→21:38)
[2023-07-02] MEDS: LEVOTHYROXINE SODIUM 50 MCG TAB PO SCH (06:12)
[2023-07-02 06:36] LABS: Magnesium 1.8 mg/dL (1.6-2.6)
[2023-07-02] MEDS: FAMOTIDINE 20 MG TAB PO SCH (08:11)
[2023-07-02] MEDS: LISINOPRIL 10 MG TAB PO SCH (08:11)
[2023-07-02] MEDS: MORPHINE SULFATE INJ 2 MG/ml SYRG IV PRN ×2 (08:12→12:16)
[2023-07-02] MEDS: HEPARIN SODIUM (PORCINE) 5000 UNITS/ML 1ML VIAL SC SCH ×2 (08:22→21:39)
[2023-07-02] MEDS: HYDROcodone-ACET 5/325MG TAB PO PRN ×2 (09:38→13:38)
[2023-07-02] MEDS: SODIUM CHLORIDE 0.9% 1,000 ML IV SCH (10:25)
[2023-07-02] MEDS: HYDROcodone-ACET 10/325MG TAB PO PRN (18:36)
[2023-07-02] MEDS: SENNA 8.6 MG TAB PO SCH (21:38)
[2023-07-03] MEDS: HYDROcodone-ACET 10/325MG TAB PO PRN ×3 (00:06→11:35)
[2023-07-03] MEDS: ACCU-CHEK COMFORT CURVE STRIP VI SCH ×3 (00:09→11:47)
[2023-07-03] MEDS: InsuLIN REG 1unit/0.01ml Soln (100units/ml) SC SCH ×3 (00:10→11:49)
[2023-07-03 00:26] VITALS: BP 130/50; PULSE 80; RESP 20; O2SAT 95
[2023-07-03 04:51] VITALS: BP 113/48; PULSE 73; RESP 20; TEMP 98.4; O2SAT 91
[2023-07-03] MEDS: ceFAZolin 1GM/50ML 50 ML IV SCH (05:14)
[2023-07-03] MEDS: ALPRAZolam 0.25 MG TAB PO PRN (05:23)
[2023-07-03] MEDS: LEVOTHYROXINE SODIUM 50 MCG TAB PO SCH (05:23)
[2023-07-03 05:29] VITALS: BP 124/58; RESP 19; O2SAT 94
[2023-07-03 08:00] VITALS: PULSE 71; O2SAT 92
[2023-07-03 09:00] VITALS: BP 128/58; PULSE 81; RESP 18; TEMP 97.7; O2SAT 100
[2023-07-03] MEDS: GABAPENTIN 300 MG CAP PO SCH (09:18)
[2023-07-03] MEDS: FAMOTIDINE 20 MG TAB PO SCH (09:19)
[2023-07-03] MEDS: SENNA 8.6 MG TAB PO SCH (09:19)
[2023-07-03] MEDS ORDERED: APIX2.5T PO (09:20)
[2023-07-03] MEDS ORDERED: NALO4SPR2 (09:20)
[2023-07-03] MEDS ORDERED: HYDR-4798 PO ×2 (09:20)
[2023-07-03] MEDS ORDERED: SENN-105 PO (09:20)
[2023-07-03] MEDS: LISINOPRIL 10 MG TAB PO SCH (09:26)
[2023-07-03] MEDS: HEPARIN SODIUM (PORCINE) 5000 UNITS/ML 1ML VIAL SC SCH (09:27)
[2023-07-03 09:45] VITALS: BP 122/58; PULSE 72; RESP 17; TEMP 36.5; O2SAT 96
[2023-07-03] MEDS ORDERED: HYDR-4072 PO (14:28)
== END 2023-07-03 12:00 | disposition home health service (06) | DRG 480 ==
LOC: ER 12:30 → TELE 14:18 → TELE-CENTR 17:38
PROVIDERS: ADMIT Hospitalist; ATTEND Hospitalist
PROC: 0QS604Z Reposition Right Upper Femur with Internal Fixation Device, Open Approach (ICD-10-PCS; principal; 2023-07-01)
PROC: 2W6LXZZ Traction of Right Lower Extremity (ICD-10-PCS; 2023-07-01)
DX: S72.141A Displaced intertrochanteric fracture of right femur, initial encounter for closed fracture (principal); N17.0 Acute kidney failure with tubular necrosis; I10 Essential (primary) hypertension; E89.0 Postprocedural hypothyroidism; E78.5 Hyperlipidemia, unspecified; E11.51 Type 2 diabetes mellitus with diabetic peripheral angiopathy without gangrene; W10.1XXA Fall (on)(from) sidewalk curb, initial encounter; D72.829 Elevated white blood cell count, unspecified; E11.65 Type 2 diabetes mellitus with hyperglycemia; Z88.0 Allergy status to penicillin; Z83.3 Family history of diabetes mellitus; Z82.49 Family history of ischemic heart disease and other diseases of the circulatory system; Z85.828 Personal history of other malignant neoplasm of skin; Z89.511 Acquired absence of right leg below knee; Z90.49 Acquired absence of other specified parts of digestive tract; Z79.4 Long term (current) use of insulin; Z80.41 Family history of malignant neoplasm of ovary; V00.141A Fall from scooter (nonmotorized), initial encounter; Y93.89 Activity, other specified; Y92.89 Other specified places as the place of occurrence of the external cause; Y99.8 Other external cause status
CPT/HCPCS: 36415; 71045; 73080; 73502; 73700; 76000; 80048; 80053; 81001; 82962; 83735; 85025; 85610; 85730; 86850; 86900; 86901; 96374; 96375; 97110; 97163; 97530; G0378; J0690; J1100; J1815; J1885; J2001; J2405; J2704

== ENCOUNTER 2024-04-21 09:01 | Emergency (ER) | payer OTHER, MEDICAID ==
[~2024-04-21] VITALS: Ht 157.5 cm; Wt 72.7 kg
[~2024-04-21 09:01] MED LIST changes: +APIX2.5T PO; -CIPR500T4 PO; +HYDR-4072 PO; +NALO4SPR2; -POTA-180 PO; +SENN-105 PO
[2024-04-21 09:25] VITALS: PULSE 81; RESP 21; O2SAT 99
[2024-04-21] MEDS: cefTRIAXone 1GM/50ML D5W 50 ML IV ONE (09:51)
[2024-04-21] MEDS: SODIUM CHLORIDE 0.9% 1,000 ML IV ONE (09:51)
[2024-04-21 10:46] LABS: Basophils # (auto) 0.1 10 ^3/uL (0-0.2); Basophils % (auto) 0.9 % (0.0-2.0); Eosinophils # (auto) 0.2 10 ^3/uL (0-0.8); Eosinophils % (auto) 2.1 % (0.0-7.0); Hematocrit 36.6 % (36.0-46.0); Lymphocytes # (auto) 2.8 10 ^3/uL (0.4-5.4); Lymphocytes % (auto) 29.9 % (10.0-50.0); Mean Corpuscular Hemoglobin 31.2 pg (28.0-32.0); Mean Corpuscular Hgb Conc. 32.8 g/dL (32.0-36.0); Mean Corpuscular Volume 95.1 fL (80.0-100.0); Monocytes % (auto) 10.8 % (0.0-12.0); Neutrophils # (auto) 5.3 10 ^3/uL (1.6-8.6); Neutrophils % (auto) 56.3 % (37.0-80.0); Nucleated Red Blood Cells % 0.1 %; Red Blood Cells 3.85 10^6/uL (4.0-5.20); Red Cell Distribution Width 13.7 % (11.8-14.3); White Blood Cell 9.5 10^3/uL (4.4-10.8)
[2024-04-21 11:05] LABS: Anion Gap 9 (5-15); Carbon Dioxide 24 mmol/L (20-30); Chloride 110 mmol/L (98-107); Potassium 3.5 mmol/L (3.5-5.1); Sodium 143 mmol/L (136-145)
[2024-04-21 11:06] LABS: Calcium 9.6 mg/dL (8.7-10.4)
[2024-04-21 11:11] LABS: BUN/Creatinine Ratio 24.3 (10.0-20.0); Blood Urea Nitrogen 26 mg/dL (9-23); Glucose 86 mg/dL (74-106)
[2024-04-21 11:30] LABS: Urine Bacteria None Seen /hpf (None Seen)
[2024-04-21 12:04] LABS: Urine Blood Negative /uL (Negative); Urine Budding Yeast OCCASIONAL /hpf (None Seen); Urine Clarity Clear (Clear); Urine Color Light-Yellow (Yellow); Urine Protein, UAD Negative (Negative); Urine Specific Gravity 1.012 (1.001-1.035); Urine Urobilinogen Normal (Negative); Urine WBC 101 /hpf (0 - 5)
[2024-04-21] MEDS: ONDANSETRON HCL 4 MG/2 ML VIAL IV ONE (13:26)
[2024-04-21] MEDS: MORPHINE SULFATE 4 MG/ML SYR/VIAL IV ONE (13:27)
[2024-04-21 14:00] VITALS: BP 148/62; PULSE 72; RESP 16; TEMP 97.8; O2SAT 97
[2024-04-21] MEDS ORDERED: CEFD300C2 PO (14:54)
== END 2024-04-21 14:54 | disposition home or self-care (01) ==
LOC: ER 09:01
DX: N12 Tubulo-interstitial nephritis, not specified as acute or chronic (principal); R30.0 Dysuria; E11.9 Type 2 diabetes mellitus without complications; E78.5 Hyperlipidemia, unspecified; I10 Essential (primary) hypertension; Z90.49 Acquired absence of other specified parts of digestive tract; Z88.0 Allergy status to penicillin
CPT/HCPCS: 36415; 74176; 80048; 81001; 85025; 96365; 96375; 99285; J0696; J2270; J2405; J7030